=== PATIENT | male | born 1975 | race Caucasian/White ===

== ENCOUNTER → 2020-06-28 11:09 | Outpatient (CLI) | payer BC, SELFPAY ==
--- NOTE | 2020-06-28 11:25 | XR_ITS ---
PROCEDURE: XR CHEST PORTABLE CLINICAL HISTORY: COVID TESTING,PNEUMONIA COMPARISON: No exams were available for comparison FINDINGS: The cardiomediastinal silhouette and pulmonary vascularity are within normal limits. The lungs are clear without infiltrates, suspicious nodules, or pleural effusions. No acute bony abnormalities. IMPRESSION: No acute findings. Dictated by: Cooper Aldana MD 06/28/2020 12:06 Cooper Aldana MD in [place] 06/28/2020 12:06
== END ==
LOC: COVID.OUT 11:16
PROVIDERS: PCP Family Medicine; Visit Provider Nurse Practitioner Family
DX: Z20.822 Contact with and (suspected) exposure to COVID-19 (principal); J18.9 Pneumonia, unspecified organism
CPT/HCPCS: 71045; U0003

== ENCOUNTER → 2020-07-01 10:45 | Outpatient (CLI) | payer BC, SELFPAY ==
--- NOTE | 2020-07-01 10:50 | CT_ITS ---
PROCEDURE: CT ANGIO CHEST CLINCIAL INDICATION: WHEEZING Congestion Productive cough Symptoms x2-3 days COMPARISON: CR XR CHEST PORTABLE from 06/28/2020 TECHNIQUE: IV Contrast: 70ML Isovue 370 Axial images obtained with sagittal and coronal reformats. All CT scans at the facility use one or more dose reduction, viz: automated exposure control, ma/kV adjustment per patient size (including targeted exams where dose is matched to indication, i.e. head), or iterative reconstruction technique. FINDINGS: No evidence of pulmonary embolus, aortic aneurysm, or aortic dissection. No mediastinal or hilar or adenopathy. There are paraseptal emphysematous changes with small bullous formation in the right apex. There is evidence of old granulomatous disease. No suspicious nodule. No infiltrates or effusions. Mild bronchial thickening noted. Mild degenerative changes are present in the thoracic spine. IMPRESSION: No evidence of pulmonary embolus or aortic aneurysm or dissection. Mild paraseptal emphysematous changes with small bullous formation in the right apex Dictated by: Cooper Aldana MD 07/02/2020 09:46 Cooper Aldana MD in [place] 07/02/2020 09:46
== END ==
PROVIDERS: PCP Family Medicine; Visit Provider Nurse Practitioner Family
DX: R06.2 Wheezing (principal)
CPT/HCPCS: 71275; Q9967

== ENCOUNTER → 2020-12-24 09:54 | Outpatient (CLI) | payer BC, SELFPAY | PROVIDERS: PCP Family Medicine; Visit Provider Nurse Practitioner | DX: U07.1 COVID-19 (principal) | CPT/HCPCS: C9803; U0003; U0005 ==

== ENCOUNTER 2022-07-06 10:37 | Emergency (ER) | payer BC, SELFPAY ==
[2022-07-06 10:45] VITALS: BP 153/93; PULSE 58; RESP 22; TEMP 36.6; O2SAT 97; BMI 37.3
--- NOTE | 2022-07-06 11:08 | EXP.UTC ---
Discharge Plan Disposition Patient Disposition: Home, Self-Care Condition: Good Prescriptions Prescriptions: New cephalexin 500 mg capsule 500 mg PO QID 5 Days Qty: 20 0RF doxycycline monohydrate 100 mg capsule 100 mg PO BID 10 Days Qty: 20 0RF Referrals Follow up/Referrals: Tim Mancini MD [Primary Care Provider] - See instructions Activity Restrictions/Add. Instructions Additional Instructions/Restrictions: Watch area for worsening of symptoms redness, swelling etc follow up immediatly if any worsening *Start antibiotic(s) immediately and be sure to take as ordered for the FULL length of time although you may be feeling better or start to see improvement in the next 24-48 hours *Monitor closely. Outlined redness so that you can monitor easier. Follow up immediately for new or worsening symptoms including but not limited to redness, swelling, streaking from site fever or chills. *Warm compress 15 minutes 3-4 times day *Never squeeze or pop these on your own. Seek immediate medical attention next time this occurs *Monitor Temp. Tylenol every 4 hours as needed and ibuprofen every 6 hours as needed (as long as your primary care doctor has told you that it is ok to take both. For fever, aches, pain. ER if no less that 101 despite Tylenol and ibuprofen ?Follow up with your family doctor/primary care physician in the next 48-72 hours if no improvement Clinical Impressions Clinical Impression: Tick bite of right foot with infection Stand Alone Forms Stand Alone Forms: Work/School Release Instructions Patient Instructions: DI for Cellulitis -- Adult, Doxycycline, Cephalexin Discharge ED Provider: Milagro Urbina [facility] General Stated complaint: Possible tick bite RT foot toes, inflammation Mode of Arrival: Ambulatory Source of Information: Patient Limitations: No Limitations Time Seen by Provider: 07/06/22 11:08 Description of Symptoms (Recalled from Triage Doc. by RN): PATIENT C/O TICK BITE TO RIGHT MIDDLE TOE THAT POSSIBLY HAPPENED SUNDAY. HE STATES HE THINKS HE GOT THE WHOLE TICK OUT. REDNESS, WARMTH, AND SWELLING NOTED TO RIGHT FOOT/TOES HEENT Symptoms (Recalled from RN notes): No Resp Symptoms (Recalled from RN notes): No Skin Symptoms (Recalled from RN notes): Yes MS Symptoms (Recalled from RN notes): No Functional Status (Recalled from RN notes): WNL History of Present Illness Provider Complaint: Patient states that he was mowing grass and on Sunday he noticed a tick on his right middle toe and removed it and thinks he got the whole tick out States that now he is having swelling, redness and warmth to his toes and top of foot Related Data Previous Rx's Medication Instructions Recorded cephalexin 500 mg capsule 500 mg PO QID 5 days #20 caps 07/06/22 doxycycline monohydrate 100 mg 100 mg PO BID 10 days #20 caps 07/06/22 capsule Allergies Allergy/AdvReac Type Severity Reaction Status Date / Time No Known Allergies Allergy Verified 07/27/20 11:09 Worker's Comp Is this a Worker's Comp case?: No [facility] Disclaimer: The information contained in this section may have been updated after the patient was seen, as this information can be updated by other users. Social History Smoking Status: Current every day smoker alcohol intake: current current occupational status: employed Travel in the last 8 weeks: None ROS Obtained: Yes All systems reviewed & no additional complaints except as documented and Yes Systems reviewed as appropriate & no additional complaints except as documented Constitutional Constitutional: Reports system reviewed and no additional complaints, except as documented, Reports as per HPI, Denies body ache, Denies chills and Denies fever(s) ENT Ears, Nose, Mouth, and Throat: Reports system reviewed and no additional complaints, except as documented and Reports as per HPI Cardiovascular Cardiovascular: Reports system reviewed and no additional complaints, exc
[2022-07-06 11:30] VITALS: BP 153/93; PULSE 58; RESP 22; TEMP 36.6; O2SAT 97
== END 2022-07-06 11:36 | disposition home or self-care (01) ==
PROVIDERS: Emergency Provider Nurse Practitioner; PCP Family Medicine
DX: S90.861A Insect bite (nonvenomous), right foot, initial encounter (principal); L08.9 Local infection of the skin and subcutaneous tissue, unspecified; W57.XXXA Bitten or stung by nonvenomous insect and other nonvenomous arthropods, initial encounter; F17.210 Nicotine dependence, cigarettes, uncomplicated
CPT/HCPCS: 99204; 99212; G0463

== ENCOUNTER 2023-03-13 08:16 | Observation (INO) | payer BC, SELFPAY ==
[2023-03-13] VITALS (14 sets, daily range): BP systolic 92–147; BP diastolic 62–98; PULSE 52–84; RESP 18–20; TEMP 36.7–37.1; O2SAT 96–99; BMI 38.7; BMI 37.6
--- NOTE | 2023-03-13 08:48 | ED_ITS ---
Discharge Plan Disposition Patient Disposition: Still a Patient Condition: Fair Referrals Follow up/Referrals: Tim Mancini MD [Primary Care Provider] - See instructions Clinical Impressions Clinical Impression: Rt inguinal pain Discharge ED Provider: Rodrigo Miranda [facility] HPI General Stated complaint: place humped up on pelvic area Time Seen by Provider: 03/13/23 08:28 History of Present Illness Provider Complaint: He states that he has had worsening right sided groin swelling, pain and tenderness to touch since last night. He has a history of having swelling in that area for the past several years that he has always attributed to being a hernia. But he has never been diagnosed because it has never gave him many problems. He states that last night he began having nausea/vomiting, then he began to have worse swelling in that area along with pain and marked tenderness. Related Data Allergies Allergy/AdvReac Type Severity Reaction Status Date / Time No Known Allergies Allergy Verified 03/13/23 08:51 [facility] Disclaimer: The information contained in this section may have been updated after the patient was seen, as this information can be updated by other users. Social History Smoking Status: Current every day smoker alcohol intake: current current occupational status: employed Travel in the last 8 weeks: None ROS Obtained: Yes All systems reviewed & no additional complaints except as documented Constitutional Constitutional: Denies chills and Denies fever(s) Eyes Eyes: Denies eye discharge ENT Ears, Nose, Mouth, and Throat: Denies dizziness, Denies otalgia and Denies sore throat Cardiovascular Cardiovascular: Denies chest pain Respiratory Respiratory: Denies shortness of breath, Denies chest congestion, Denies cough, Denies stridor and Denies wheezing Gastrointestinal Gastrointestingal: Reports abdominal pain, nausea and vomiting; Denies melena Musculoskeletal Musculoskeletal: Reports system reviewed and no additional complaints, except as documented and Denies arthralgias Integumentary/Breasts Skin/Breast: Denies rash Neurologic Neurologic: Denies dizziness and Denies paresthesias Allergic/Immunologic Allergic/Immunologic: Denies wheezing Physical Exam General General appearance: alert and in no apparent distress Head Head exam: atraumatic, normocephalic and normal inspection Eye Eye exam: Present normal appearance, PERRL and EOMI ENT ENT exam: Present normal exam, normal oropharynx, mucous membranes moist, TM's normal bilaterally and normal external ear exam Neck Neck exam: Present normal inspection, full ROM and trachea midline; Absent meningismus or lymphadenopathy Chest Chest inspection: Present normal inspection and symmetric chest wall rise; Absent tenderness Respiratory Respiratory exam: Present normal lung sounds bilaterally; Absent respiratory distress Cardiovascular Cardiovascular exam: Present regular rate and normal rhythm; Absent JVD Abdominal Exam Abdominal exam: Present soft, tenderness, guarding, hyperactive bowel sounds and hernia; Absent distention Extremities Exam Extremities exam: Present normal inspection, full ROM and normal capillary refill; Absent calf tenderness Back Exam Back exam: Present normal inspection; Absent tenderness Neurological Exam Neurological exam: Present alert and oriented X3 Psychiatric Psychiatric exam: Present normal affect and normal mood Skin Skin exam: Present warm, dry, intact and normal color Lymphatic Lymphatic Findings: no adenopathy Medical Decision Making Medical Records Medical records reviewed: No I reviewed the patient's medical records. Arjun Inquiry Pt receiving controlled substance: No Lab Data Lab results reviewed: Yes I reviewed the patient's lab results.
[2023-03-13 08:55] LABS: UTC Influenza A Antigen Negative (Negative); UTC Influenza B Antigen Negative (Negative)
[2023-03-13 08:56] LABS: Apearance,Urine Clear (Clear); Bilirubin,Urine Negative (Negative); Blood, Urine Negative (Negative); Color,Urine Dark Yellow (Yellow); Glucose,Urine (UA) Negative (Negative); Ketones,Urine Negative (Negative); PH,Urine 5.5 (5.0-8.5); Protein,Urine Negative (Negative); UTC Leukocyte Esterase,Urine Negative (Negative); UTC Nitrate,Urine Negative (Negative); Urobilinogen,Urine 0.2 EU/dl (0.2)
--- NOTE | 2023-03-13 09:28 | CT_ITS ---
FINAL REPORT CLINICAL HISTORY: inguinal hernia, concern for obstruction COMPARISON: None FINDINGS: CT OF THE ABDOMEN AND PELVIS WITH CONTRAST Axial CT images of the abdomen and pelvis were obtained after the administration of IV contrast. Coronal and sagittal reformatted images were also obtained and reviewed. This study was performed with techniques to keep radiation doses as low as reasonably achievable (ALARA). Individualized dose reduction techniques using automated exposure control or adjustment of mA and/or kV according to the patient's size were employed. Abdomen: There is mild scarring present in the lung bases.. There is a probable pericardial cyst adjacent to the right atrium that measures 34 mm in diameter. The liver has an unremarkable appearance, without evidence of mass or biliary ductal dilatation. The spleen is unremarkable. No adrenal mass is present. The pancreas has an unremarkable appearance. The left kidney is severely atrophic. The right kidney is normal in appearance. There is a 5 mm stone present in the lower pole of the left kidney. The aorta is normal in caliber, however there is abnormal soft tissue in the retroperitoneum surrounding the aorta suggestive of retroperitoneal fibrosis.. There is no free fluid or adenopathy. No mass or abnormal fluid collection is seen. Pelvis: The appendix is normal in appearance. The urinary bladder is unremarkable. No inflammatory process is seen. There is no evidence of mass or adenopathy. There is no evidence of bowel obstruction. Sigmoid diverticulosis is present without evidence of acute inflammatory process. Bilateral inguinal hernias are present, larger on the right than the left, both containing fat. IMPRESSION: Severely atrophic left kidney, with a 5 mm stone in the lower pole. There is abnormal soft tissue present in the retroperitoneum surrounding the aorta, consistent with mild retroperitoneal fibrosis. No evidence of bowel obstruction. Bilateral inguinal hernias are present, larger on the right than the left, that both contain fat. Pericardial cyst adjacent to the right atrium, 34 mm in size. Reviewed, Interpreted and Dictated by Ernie Helm III, MD Transcribed by Ana Maria Ramírez Authenticated and [facility]
--- NOTE | 2023-03-13 09:44 | PC.NURSE ---
dr akers at bedside
[2023-03-13] MEDS: LACTATED RINGERS 1000ML 1,000 ML 999 ML IV (09:48)
[2023-03-13 09:49] LABS: Basophils # 0.1 K/mm3 (0-0.2); Basophils % 0.8 % (0.1-2.0); Eosinophils # 0.4 K/mm3 (0.0-0.4); Eosinophils % 3.6 % (0.1-12.0); Hematocrit 48.7 % (42.0-52.0); Hemoglobin 16.6 g/dL (14.1-18.0); Lymphocytes # 1.8 K/mm3 (0.7-4.5); Lymphocytes % 18.9 % (10-50); Mean Corpuscular HGB Conc 34.1 g/dL (31.8-35.4); Mean Corpuscular Hemoglobin 30.9 pg (27.0-31.2); Mean Corpuscular Volume 90.5 fl (80-94); Mean Platelet Volume 7.8 fl (7.4-10.4); Monocytes # 0.5 K/mm3 (0.1-1.0); Monocytes % 4.7 % (1.7-9.3); Neutrophils # 7.1 K/mm3 (1.8-7.8); Neutrophils % 72.1 % (37.0-80.0); Platelet Count 266 K/mm3 (142-424); Red Blood Count 5.38 M/mm3 (4.60-6.20); Red Cell Distribution Width 13.7 % (11.5-17.5); White Blood Count 9.8 K/mm3 (4.8-10.8)
[2023-03-13] MEDS: ONDANSETRON 4MG/2ML VIAL 4 MG IV (09:50)
--- NOTE | 2023-03-13 09:59 | ED_ITS ---
Discharge Plan Disposition Patient Disposition: Admitted Condition: Fair Referrals Follow up/Referrals: Tim Mancini MD [Primary Care Provider] - See instructions Clinical Impressions Clinical Impression: Rt inguinal pain, Acute pancreatitis Discharge ED Provider: Rodrigo Miranda General Adult HPI General Chief complaint: PAIN Stated complaint: place humped up on pelvic area Time Seen by Provider: 03/13/23 08:28 Mode of Arrival: Wheelchair Source of Information: Patient Limitations: No Limitations Description of Symptoms (Recalled from ER Triage Doc. by RN): Patient reports vomiting last night that caused a bump to come up in his right groin area. States it is painful. History of Present Illness HPI narrative: 48-year-old male with history of right inguinal hernia presenting with abdominal pain and vomiting. Patient states that last night, 03/12/2023, he began having abdominal pain primarily on his right side and right lower quadrant. Associated with vomiting shortly thereafter. Vomit was yellow initially, then turned into a dark orange. Denies any dark red, dark green, or brown. Last bowel movement was yesterday, 03/12 and he states was running, not normal for him. He has not been passing gas over the last 24 hours or so. No fevers or chills. No abdominal pain does not radiate, he does not believe groin swelling has gotten significantly worse from baseline. Related Data Allergies Allergy/AdvReac Type Severity Reaction Status Date / Time No Known Allergies Allergy Verified 03/13/23 08:51 [facility] Disclaimer: The information contained in this section may have been updated after the patient was seen, as this information can be updated by other users. Social History Smoking Status: Never smoker alcohol intake: current current occupational status: employed Travel in the last 8 weeks: None ROS Obtained: Yes All systems reviewed & no additional complaints except as documented Physical Exam General General appearance: alert and in distress (2/2 pain) Head Head exam: atraumatic and normocephalic Eye Eye exam: Present normal appearance, PERRL and EOMI ENT ENT exam: Present mucous membranes moist Neck Neck exam: Present normal inspection, full ROM and trachea midline Respiratory Respiratory exam: Absent respiratory distress, wheezes, stridor, accessory muscle use or prolonged expiratory phase Cardiovascular Cardiovascular exam: Present normal rhythm Abdominal Exam Abdominal exam: Present soft, tenderness and guarding; Absent distention, rebound or rigidity Abdominal tenderness: Present RUQ, RLQ and moderate exam: Present other (Right inguinal hernia which is significantly tender. No induration around the area and no evidence of overlying skin changes) Extremities Exam Extremities exam: Absent edema Neurological Exam Neurological exam: Present alert, oriented X3, CN II-XII intact and normal gait; Absent motor sensory deficit Skin Skin exam: Present warm and dry; Absent diaphoresis or erythema Medical Decision Making Medical Records Medical records reviewed: Yes I reviewed the patient's medical records. Arjun Inquiry Pt receiving controlled substance: No Arjun was queried for this patient: No Vital Signs: 03/13/23 08:25 03/13/23 09:44 03/13/23 11:01 Temperature 98.7 F 98.7 F Temperature Source Oral Oral Pulse Rate 65 Pulse Rate [Right Radial] 84 71 Respiratory Rate 18 18 Blood Pressure 132/92 H Blood Pressure [Right Arm] 144/97 H Blood Pressure Mean Blood Pressure Mean [Right Arm] 112 Blood Pressure Source [Right Arm] Automatic Cuff Blood Pressure Position [Right Arm] Sitting 02 Sat by Pulse Oximetry 98 96 96 Oxygen Delivery Method Room Air Room Air Room Air 03/13/23 11:21 03/13/23 11:41 03/13/23 12:01 Temperature Temperature Source Pulse Rate 59 L 57 L 67 Pulse Rate [Right Radial] Respiratory Rate 20 Blood Pressure 127/82 130/80 92/62 L Blood Pressure [Right Arm] Blood Pressure Mean 72 Blood Pressure Mean [Right Arm] Blood Pressure Source [Right Arm] Blood Pressure Position [Right Arm] 02 Sat by Pulse Oximetry 98 96 97 Oxygen Delivery Method Room Air Room Air 03/13/23 12:21 Temperature Temperature Source Pulse Rate 59 L Pulse Rate [Right Radial] Respiratory Rate Blood Pressure 116/98 H Blood Pressure [Right Arm] Blood Pressure Mean Blood Pressure Mean [Right Arm] Blood Pressure Source [Right Arm] Blood Pressure Position [Right Arm] 02 Sat by Pulse Oximetry 97 Oxygen Delivery Method Room Air Lab Data Lab Results 03/13/23 08:26: Urine Color Dark yellow, Urine Appearance Clear, Urine pH 5.5, Ur Specific [place] 1.030, Urine Protein Negative, Urine Glucose (UA) Negative, Urine Ketones Negative, Urine Blood Negative, Urine Nitrate Negative, Urine Bilirubin Negative, Urine Urobilinogen 0.2, Ur Leukocyte Esterase Negative, Influenza Type A Ag Negative, Influenza Type B Ag Negative 03/13/23 09:39: WBC 9.8, RBC 5.38, Hgb 16.6, Hct 48.7, MCV 90.5, MCH 30.9, MCHC 34.1, RDW 13.7, Plt Count 266, MPV 7.8, Neut % (Auto) 72.1, Lymph % (Auto) 18.9, Giles % (Auto) 4.7, Eos % (Auto) 3.6, Baso % (Auto) 0.8, Neut # (Auto) 7.1, Lymph # (Auto) 1.8, Giles # (Auto) 0.5, Eos # (Auto) 0.4, Baso # (Auto) 0.1, Sodium 141, Potassium 4.4, Chloride 111 H, Carbon Dioxide 23, Anion Gap 11.4, BUN 18, Creatinine 0.90, Estimated Creat Clear 177, Estimated GFR 91, Est GFR ( Amer) 110, Glucose 77, Calcium 9.5, Total Bilirubin 1.0, AST 32, ALT 23, Alkaline Phosphatase 62, Total Protein 7.1, Albumin 4.3, Globulin 2.8, Albumin/Globulin Ratio 1.5, Lipase 983 H 03/13/23 10:59: Lactate 0.7 03/13/23 09:39 03/13/23 09:39 Orders (Tests/Meds): ED MEDICATIONS Generic Name Dose Route Start Last Admin Trade Name Freq PRN Reason Stop Dose Admin Sodium Chloride 10 ml 03/13/23 10:48 03/13/23 10:49 Sodium Chloride 0.9% 10ml Syr (Rad Only) IV 04/12/23 10:47 10 ml NEEDED PRN Administration Maintain IV Site Discontinued Medications Generic Name Dose Route Start Last Admin Trade Name Freq PRN Reason Stop Dose Admin Hydromorphone HCl 0.5 mg 03/13/23 10:03 03/13/23 10:18 Hydromorphone 2mg/Ml Syringe IV 03/13/23 10:04 0.5 mg ONCE ONE Administration Lactated Ringer's 1,000 mls @ 999 mls/hr 03/13/23 09:29 03/13/23 09:48 Lactated Ringer's 1000 Ml Bag IV 03/13/23 10:29 999 mls/hr .Q1H1M ONE Administration Iopamidol 75 ml 03/13/23 10:48 03/13/23 10:49 Iopamidol-370 (76%);100ml Bottle IV 03/13/23 10:49 75 ml ONCE ONE Administration Ketorolac Tromethamine 15 mg 03/13/23 10:03 03/13/23 10:18 Ketorolac 30mg/Ml Vial IV 03/13/23 10:04 15 mg ONCE ONE Administration Ondansetron HCl 4 mg 03/13/23 09:29 03/13/23 09:50 Ondansetron 4mg/2ml Vial IV 03/13/23 09:30 4 mg ONCE ONE Administration ORDERS Category Date Time Status CT abdomen pelvis w con Stat Cat Scan 03/13/23 09:28 Completed CBC w/Auto Diff [Complete Blood Count Auto Diff] Stat Lab 03/13/23 09:39 Completed CMP [Comprehensive Metabolic Panel] Stat Lab 03/13/23 09:39 Completed Lactic Acid Stat Lab 03/13/23 10:59 Completed Lipase Stat Lab 03/13/23 09:39 Completed Triglycerides Stat Lab 03/13/23 12:16 Ordered Urine Culture Stat Micro 03/13/23 08:25 Received Medical Decision Narrative: 48-year-old male with history of right inguinal hernia presenting with abdominal pain and vomiting. Patient states that last night, 03/12/2023, he began having abdominal pain primarily on his right side and right lower quadrant. Associated with vomiting shortly thereafter. Vomit was yellow initially, then turned into a dark orange. Denies any dark red, dark green, or brown. Last bowel movement was yesterday, 03/12 and he states was running, not normal for him. He has not been passing gas over the last 24 hours or so. No fevers or chills. No abdominal pain does not radiate, he does not believe groin swelling has gotten significantly worse from baseline. History was obtained via conversation with patient. On arrival, patient hemodynamically stable, alert, oriented x4, appropriate, GCS 15, moving all extremities spontaneously, pupils equal and reactive to light. Full physical exam performed and significant for significant abdominal tenderness primarily on the right side. Guarding without rebound or rigidity. Right inguinal hernia without extension into scrotum. No overlying skin changes, no induration, but nonreducible. Seems to be in significant pain. No scrotal abnormalities or testicular abnormality Differential includes incarcerated hernia, strangulated hernia, testicular torsion, gastroenteritis, appendicitis, cholecystitis, among others. Patient was given Toradol, Dilaudid, fluid bolus, Zofran for symptomatic management and correction of underlying abnormalities. Workup independently interpreted and significant for nonactionable CBC or chemistry. Kidney function normal. Lactate negative. Lipase 983. Urinalysis negative. CT abdomen pelvis with bilateral inguinal hernias not containing loops of bowel. No evidence of obstruction. See radiology read for full review of final results. On reevaluation, patient still in pain, given Toradol and Dilaudid. Dr. Calix contacted as the admitting team for Dr. Mancini, agreeable to admission. Given patient presentation, workup, history, this most likely represents acute pancreatitis. Triglycerides were ordered. Because patient high risk for clinical decompensation and unable to tolerate meaningful p.o. intake, deemed appropriate for inpatient admission. Results were relayed to patient who voiced understanding and patient was agreeable to inpatient admission and management. Patient was admitted to the hospital for further definitive management. Critical Care Critical Care Time Critical Care Time: No
[2023-03-13 10:11] LABS: Alanine Aminotransferase 23 U/L (12-78); Albumin Level 4.3 g/dl (3.5-5.0); Albumin/Globulin Ratio 1.5 (1.1-1.8); Alkaline Phosphatase 62 U/L (38-126); Anion Gap 11.4 mEq/L (5-15); Aspartate Amino Transferase 32 U/L (17-59); Blood Urea Nitrogen 18 mg/dl (9-20); Calcium 9.5 mg/dl (8.4-10.2); Carbon Dioxide 23 mmol/L (22.0-30.0); Chloride 111 mmol/L (98-107); Creatinine Clearance Estimated 177 mL/min (50-200); Estimated Glomerular Filt Rate 91 ml/min (>60); GFR (African American) 110 ML/MIN (>60); Globulin 2.8 g/dL (1.3-3.2); Glucose 77 mg/dl (74-100); Potassium 4.4 mmoL/L (3.5-5.1); Sodium 141 mmol/L (136-145); Total Protein,Serum 7.1 g/dl (6.3-8.2)
[2023-03-13 10:15] LABS: Lipase 983 U/L (23-300)
[2023-03-13] MEDS: KETOROLAC 30MG/ML VIAL 15 MG IV (10:18)
[2023-03-13] MEDS: HYDROMORPHONE 2MG/ML SYRINGE 0.5 MG IV (10:18)
--- NOTE | 2023-03-13 10:18 | PC.NURSE ---
PT MEDICATED PER EMAR, LIGHTS DIMMED AND CALL LIGHT WITHIN REACH. PT WITHOUT NEEDS AT THIS TIME
[2023-03-13] MEDS: SODIUM CHLORIDE 0.9% 10ML SYR (RAD ONLY) 10 ML IV (10:49)
[2023-03-13] MEDS: IOPAMIDOL-370 (76%);100ML BOTTLE 75 ML IV (10:49)
--- NOTE | 2023-03-13 11:00 | PC.NURSE ---
pt was given a urinal and placed bed side table near him so he could rest his arm and place his phone no other needs at this time,call light at bs
[2023-03-13 11:23] LABS: Lactic Acid 0.7 mmol/L (0.7-2.1)
--- NOTE | 2023-03-13 12:10 | PC.NURSE ---
MULTIPLE ATTEMPTS TO REACH [facility] OFFICE, NO ANSWER. ATTEMPTING TO REACH ON -CALL MD FOR DR. MARVIN.
--- NOTE | 2023-03-13 12:14 | PC.NURSE ---
DR JAIME SPEAKING WITH DR TAMAYO
--- NOTE | 2023-03-13 12:16 | PC.NURSE ---
pt was given to
--- NOTE | 2023-03-13 12:30 | PC.NURSE ---
DR JAIME SPEAKING WITH DR MITCHELL FOR ADMISSION
--- NOTE | 2023-03-13 12:35 | PC.NURSE ---
CARE MANAGEMENT NOTIFIED OF ADMISSION
[2023-03-13 12:44] LABS: Triglycerides 90 mg/dl (30-150)
--- NOTE | 2023-03-13 12:46 | PC.NURSE ---
rounded on pt asked how long it be before he was moved to med surg let pt know we were waiting on rooms so pt stated he was going to take a nap i pulled curtain and closed glass door pt has call light at bs
--- NOTE | 2023-03-13 13:53 | EXP.HP ---
History of Present Illness *Admission Date: 03/13/23 *Reason for visit:: Nausea, vomiting, diarrhea, abdominal pain *History of present illness: Mr. Benito is a 48-year-old male patient who is usually healthy and takes no medications on a regular basis who presented to [facility] emergency room after experiencing nausea and vomiting and diarrhea yesterday. He states it was sudden onset and he had been doing well and actually took a youth group to [place] on Sunday evening. He was able to retain dry cereal last p.m. This a.m. he again vomited. He was concerned about a right inguinal hernia which seems to be larger and was painful. He also began to experience some right upper Quadrant/general abdominal discomfort. He did vomit again today. He denies hematochezia, melena, and hematemesis. He is voiding without difficulty. He denies fever and upper respiratory problems. He states his family members currently have flu and he was concerned about this as well. With evaluation in the emergency room temperature was 98.7. Blood pressure initially was elevated and is now back to normal. He did receive a dose of Dilaudid 1 and Ketorolac IV which has helped his pain. He also received a liter of IV fluids and Zofran IV. Laboratory data was pretty much negative except for a lipase of 983. CT of the abdomen abdomen did show bilateral inguinal hernias with the right being larger than the left. Neither contained loops of bowel. No evidence of obstruction. Flu test was negative. At the time of this visit patient was awakened for exam. He states he did not hurt and was not nauseated. He was wondering when he could eat. [facility] Disclaimer: The information contained in this section may have been updated after the patient was seen, as this information can be updated by other users. Medical History (Updated 03/13/23 @ 15:02 by Bianca Banuelos RN) Gout History of left heart catheterization Family History (Updated 03/13/23 @ 13:59 by Altagracia Doe APRN) Diabetes Heart attack Social History (Updated 03/13/23 @ 15:03 by Bianca Banuelos RN) Smoking Status: Current every day smoker alcohol intake: never current occupational status: employed Travel in the last 8 weeks: None Review of Systems Constitutional Constitutional: Denies fever(s), Denies frequent falls and Reports headache(s) Eyes Eyes: Denies change in vision ENT Ears, Nose, Mouth, and Throat: Denies dizziness, Denies otalgia, Reports headache(s), Denies post nasal drip, Denies sore throat and Denies vertigo *Cardiovascular Cardiovascular: Denies chest pain, Denies dyspnea, Denies leg edema and Denies palpitations *Respiratory Respiratory: Denies chest congestion, Reports cough (Infrequent) and Denies dyspnea *Gastrointestinal Gastrointestinal: Reports change in stool character, Denies coffee ground emesis, Denies constipation, Reports diarrhea, Denies dyspepsia, Denies hematemesis, Reports loose stools, Denies melena, Reports nausea and Reports vomiting *Genitourinary Genitourinary: Denies dysuria *Musculoskeletal Musculoskeletal: Denies abnormal gait and Denies arthralgias *Neurologic Neurologic: Denies abnormal gait, Denies dizziness, Denies frequent falls, Reports headache(s), Denies paresthesias and Denies vertigo Endocrine Endocrine: Denies palpitations Meds Home Medications and Allergies Home Medications Medication Instructions Recorded Confirmed Type No Known Home Medications 03/13/23 03/13/23 History New Prescriptions to Start Prescriptions: Allergies Allergy/AdvReac Type Severity Reaction Status Date / Time No Known Allergies Allergy Verified 03/13/23 08:51 Exam Data for Last 24 hours Vital signs and Labs for Last 24 Hours: Temp Pulse Resp BP Pulse Ox O2 Del Method 98.7 F 59 L 20 116/98 H 97 Room Air 03/13/23 09:44 03/13/23 12:21 03/13/23 12:01 03/13/23 12:21 03/13/23 12:21 03/13/23 12:21 Laboratory Results - last 24 hr 03/13/23 08:26: Urine Color Dark yellow, Urine Appearance Clear, Urine pH 5.5, Ur Specific [place] 1.030, Urine Protein Negative, Urine Glucose (UA) Negative, Urine Ketones Negative, Urine Blood Negative, Urine Nitrate Negative, Urine Bilirubin Negative, Urine Urobilinogen 0.2, Ur Leukocyte Esterase Negative, Influenza Type A Ag Negative, Influenza Type B Ag Negative 03/13/23 09:39: WBC 9.8, RBC 5.38, Hgb 16.6, Hct 48.7, MCV 90.5, MCH 30.9, MCHC 34.1, RDW 13.7, Plt Count 266, MPV 7.8, Neut % (Auto) 72.1, Lymph % (Auto) 18.9, [place] % (Auto) 4.7, Eos % (Auto) 3.6, Baso % (Auto) 0.8, Neut # (Auto) 7.1, Lymph # (Auto) 1.8, [place] # (Auto) 0.5, Eos # (Auto) 0.4, Baso # (Auto) 0.1, Sodium 141, Potassium 4.4, Chloride 111 H, Carbon Dioxide 23, Anion Gap 11.4, BUN 18, Creatinine 0.90, Estimated Creat Clear 177, Estimated GFR 91, Est GFR ( Amer) 110, Glucose 77, Calcium 9.5, Total Bilirubin 1.0, AST 32, ALT 23, Alkaline Phosphatase 62, Total Protein 7.1, Albumin 4.3, Globulin 2.8, Albumin/Globulin Ratio 1.5, Lipase 983 H 03/13/23 10:59: Lactate 0.7 03/13/23 : Triglycerides 90 I & O for Last 24 hours: Intake & Output 03/11/23 03/12/23 03/13/23 03/14/23 11:59 11:59 11:59 11:59 Output Total 700 / 700 Balance -700 / -700 Weight 269 lb 8 oz Constitutional Constitutional: no acute distress Comments: Awakened for physical assessment. Patient was very helpful. *Routine HEENT Exam Head: Present normocephalic and atraumatic Eye: Present PERRL; Absent conjunctival icterus, scleral injection or conjunctivae pink ENT: Present mucous membranes moist and oropharynx clear *Routine Neck Exam Neck: Present supple; Absent carotid bruit, lymphadenopathy or thyromegaly *Routine Respiratory Exam Respiratory: Present CTA bilaterally (Anteriorly and posteriorly) *Routine Cardiovascular Exam Cardiovascular: Present RRR *Routine Abdominal Exam Abdominal: Present soft, normoactive bowel sounds, tenderness (Diffusely) and distended *Routine Rectal Exam Rectal:: deferred *Routine Genitalia Exam Genitalia:: deferred *Routine Extremities Exam Extremities: Present full ROM and pulses intact; Absent edema or calf tenderness *Routine Neurological Exam Neurological: Present alert and oriented X3 Assessment and Plan *Assessment and plan (1) Acute pancreatitis: Status: Acute Category: Medical Code(s): K85.90 - Acute pancreatitis without necrosis or infection, unspecified (2) Nausea vomiting and diarrhea: Status: Acute Category: Medical Code(s): R11.2 - Nausea with vomiting, unspecified; R19.7 - Diarrhea, unspecified Plan Pain and nausea management. GI rest. IV fluids Dr. Calix entry - Saw patient, agree with above note.
--- NOTE | 2023-03-13 14:43 | PC.NURSE ---
REPORT RECEIVED FROM Prabhu SOLIS RN
[2023-03-13] MEDS: LACTATED RINGERS 1000ML 1,000 ML 100 ML IV (14:51)
[2023-03-14] MEDS: LACTATED RINGERS 1000ML 1,000 ML 100 ML IV (00:43)
[2023-03-14] MEDS: ACETAMINOPHEN 500MG TAB 1000 MG PO (00:46)
[2023-03-14 04:00] VITALS: BP 139/92; PULSE 61; RESP 18; TEMP 36.5; O2SAT 97; BMI 38.1
[2023-03-14 06:40] LABS: Basophils # 0.1 K/mm3 (0-0.2); Basophils % 0.5 % (0.1-2.0); Eosinophils # 0.4 K/mm3 (0.0-0.4); Eosinophils % 3.7 % (0.1-12.0); Hematocrit 45.7 % (42.0-52.0); Hemoglobin 15.3 g/dL (14.1-18.0); Lymphocytes # 2.5 K/mm3 (0.7-4.5); Lymphocytes % 24.6 % (10-50); Mean Corpuscular HGB Conc 33.5 g/dL (31.8-35.4); Mean Corpuscular Hemoglobin 30.7 pg (27.0-31.2); Mean Corpuscular Volume 91.8 fl (80-94); Mean Platelet Volume 8.1 fl (7.4-10.4); Monocytes # 0.6 K/mm3 (0.1-1.0); Monocytes % 5.4 % (1.7-9.3); Neutrophils # 6.7 K/mm3 (1.8-7.8); Neutrophils % 65.7 % (37.0-80.0); Platelet Count 218 K/mm3 (142-424); Red Blood Count 4.98 M/mm3 (4.60-6.20); Red Cell Distribution Width 13.8 % (11.5-17.5); White Blood Count 10.3 K/mm3 (4.8-10.8)
[2023-03-14 06:43] LABS: Chloride 111 mmol/L (98-107); Potassium 4.6 mmoL/L (3.5-5.1); Sodium 139 mmol/L (136-145)
[2023-03-14 06:45] LABS: Alanine Aminotransferase 22 U/L (12-78); Amylase 83 U/L (30-110); Aspartate Amino Transferase 25 U/L (17-59); Blood Urea Nitrogen 12 mg/dl (9-20); Creatinine Clearance Estimated 158 mL/min (50-200); Estimated Glomerular Filt Rate 80 ml/min (>60); GFR (African American) 97 ML/MIN (>60)
[2023-03-14 06:46] LABS: Albumin Level 3.5 g/dl (3.5-5.0); Albumin/Globulin Ratio 1.4 (1.1-1.8); Alkaline Phosphatase 65 U/L (38-126); Anion Gap 6.6 mEq/L (5-15); Bilirubin,Total 0.8 mg/dl (0.2-1.3); Calcium 8.8 mg/dl (8.4-10.2); Carbon Dioxide 26 mmol/L (22.0-30.0); Globulin 2.5 g/dL (1.3-3.2); Glucose 91 mg/dl (74-100); Lipase 112 U/L (23-300)
[2023-03-14 07:57] VITALS: BP 146/82; PULSE 63; RESP 18; TEMP 36.8; O2SAT 99
--- NOTE | 2023-03-14 08:35 | EXP.ACUTE.PN ---
Subjective *Date: 03/14/23 *Time: 09:10 Interval history: Patient states he is having less pain in his upper abdomen but his right groin area hurts this morning. He was unable to sleep on the right side due to the pain. He was able to eat some oatmeal and Jell-O this morning. Medical Exam Vital signs and Labs for Last 24 Hours: Vital Signs Temp Pulse Pulse Resp BP BP Pulse Ox 03/14/23 07:57 98.3 F 63 18 146/82 H 99 03/14/23 07:00 03/14/23 05:00 03/14/23 04:00 97.7 F 61 18 139/92 H 97 03/14/23 03:00 03/14/23 01:00 03/14/23 01:01 03/13/23 23:00 03/13/23 21:00 03/13/23 19:54 98.2 F 64 18 145/95 H 99 03/13/23 18:48 03/13/23 17:00 03/13/23 15:36 03/13/23 15:03 98.0 F 56 L 18 132/92 H 96 03/13/23 15:00 03/13/23 14:52 98.0 F 58 L 20 138/72 03/13/23 14:21 58 L 140/92 H 97 03/13/23 14:01 66 147/90 H 96 03/13/23 13:41 59 L 20 125/95 H 97 03/13/23 13:00 52 L 20 137/92 H 96 03/13/23 12:21 59 L 116/98 H 97 03/13/23 12:01 67 20 92/62 L 97 03/13/23 11:41 57 L 130/80 96 03/13/23 11:21 59 L 127/82 98 03/13/23 11:01 65 132/92 H 96 03/13/23 09:44 98.7 F 71 18 144/97 H 96 O2 Del Method 03/14/23 07:57 Room Air 03/14/23 07:00 Room Air 03/14/23 05:00 Room Air 03/14/23 04:00 Room Air 03/14/23 03:00 Room Air 03/14/23 01:00 Room Air 03/14/23 01:01 Room Air 03/13/23 23:00 Room Air 03/13/23 21:00 Room Air 03/13/23 19:54 Room Air 03/13/23 18:48 Room Air 03/13/23 17:00 Room Air 03/13/23 15:36 Room Air 03/13/23 15:03 Room Air 03/13/23 15:00 Room Air 03/13/23 14:52 Room Air 03/13/23 14:21 Room Air 03/13/23 14:01 Room Air 03/13/23 13:41 03/13/23 13:00 03/13/23 12:21 Room Air 03/13/23 12:01 03/13/23 11:41 Room Air 03/13/23 11:21 Room Air 03/13/23 11:01 Room Air 03/13/23 09:44 Room Air Intake and Output 03/13/23 03/14/23 03/14/23 19:59 03:59 11:59 Intake Total 1060 / 2902 1842 / 2902 Output Total 700 / 700 0 / 700 0 / 700 Balance 360 / 2202 0 / 2202 1842 / 2202 Intake: Intake, Oral Amount 960 / 1580 620 / 1580 Intake, Total IV Amount 100 / 1322 1222 / 1322 Lactated Ringers 1000ML 1,000 100 / 1322 1222 / 1322 ml @ 100 mls/hr IV .Q10H [facility] Rx #:[id number] Output: Output, Urine Amount 700 / 700 0 / 700 0 / 700 Other: Number of Voids 1 Number of Unmeasured Voids 1 1 1 Weight 262 lb 3 oz 266 lb 6.4 oz Patient Weight 03/14/23 11:59 Weight 266 lb 6.4 oz Laboratory Results - last 24 hr 03/13/23 08:26: Urine Color Dark yellow, Urine Appearance Clear, Urine pH 5.5, Ur Specific [place] 1.030, Urine Protein Negative, Urine Glucose (UA) Negative, Urine Ketones Negative, Urine Blood Negative, Urine Nitrate Negative, Urine Bilirubin Negative, Urine Urobilinogen 0.2, Ur Leukocyte Esterase Negative, Influenza Type A Ag Negative, Influenza Type B Ag Negative 03/13/23 09:39: WBC 9.8, RBC 5.38, Hgb 16.6, Hct 48.7, MCV 90.5, MCH 30.9, MCHC 34.1, RDW 13.7, Plt Count 266, MPV 7.8, Neut % (Auto) 72.1, Lymph % (Auto) 18.9, [place] % (Auto) 4.7, Eos % (Auto) 3.6, Baso % (Auto) 0.8, Neut # (Auto) 7.1, Lymph # (Auto) 1.8, [place] # (Auto) 0.5, Eos # (Auto) 0.4, Baso # (Auto) 0.1, Sodium 141, Potassium 4.4, Chloride 111 H, Carbon Dioxide 23, Anion Gap 11.4, BUN 18, Creatinine 0.90, Estimated Creat Clear 177, Estimated GFR 91, Est GFR ( Amer) 110, Glucose 77, Calcium 9.5, Total Bilirubin 1.0, AST 32, ALT 23, Alkaline Phosphatase 62, Total Protein 7.1, Albumin 4.3, Globulin 2.8, Albumin/Globulin Ratio 1.5, Lipase 983 H 03/13/23 10:59: Lactate 0.7 03/13/23 : Triglycerides 90 03/14/23 06:02: WBC 10.3, RBC 4.98, Hgb 15.3, Hct 45.7, MCV 91.8, MCH 30.7, MCHC 33.5, RDW 13.8, Plt Count 218, MPV 8.1, Neut % (Auto) 65.7, Lymph % (Auto) 24.6, [place] % (Auto) 5.4, Eos % (Auto) 3.7, Baso % (Auto) 0.5, Neut # (Auto) 6.7, Lymph # (Auto) 2.5, [place] # (Auto) 0.6, Eos # (Auto) 0.4, Baso # (Auto) 0.1, Sodium 139, Potassium 4.6, Chloride 111 H, Carbon Dioxide 26, Anion Gap 6.6, BUN 12 D, Creatinine 1.00, Estimated Creat Clear 158, Estimated GFR 80, Est GFR ( Amer) 97, Glucose 91, Calcium 8.8, Total Bilirubin 0.8, AST 25, ALT 22, Alkaline Phosphatase 65, Total Protein 6.0 L, Albumin 3.5 D, Globulin 2.5, Albumin/Globulin Ratio 1.4, Amylase 83, Lipase 112 I & O for Labs for Last 24 Hours: Intake & Output 03/11/23 03/12/23 03/13/23 03/14/23 11:59 11:59 11:59 11:59 Intake Total 2902 / 2902 Output Total 700 / 700 Balance 2202 / 2202 Weight 269 lb 8 oz 266 lb 6.4 oz Constitutional: Present no acute distress Respiratory: Present CTA bilaterally Cardiac: Present Reg Rate and Rhythm GI: Present soft, tenderness (epigastric area and right groin - right groin is very tender this am) and normal bowel sounds; Absent distention Extremities: Absent edema, clubbing or cyanosis Skin: Present intact Neuro: Present alert and awake Assessment and Plan *Assessment and plan (1) Acute pancreatitis: Status: Acute Category: Medical Code(s): K85.90 - Acute pancreatitis without necrosis or infection, unspecified (2) Nausea vomiting and diarrhea: Status: Acute Category: Medical Code(s): R11.2 - Nausea with vomiting, unspecified; R19.7 - Diarrhea, unspecified (3) Inguinal hernia: Status: Acute Category: Medical Code(s): K40.90 - Unilateral inguinal hernia, without obstruction or gangrene, not specified as recurrent (4) Rt inguinal pain: Status: Acute Category: Medical Code(s): R10.31 - Right lower quadrant pain Plan Epigastric pain has improved and lipase has normalized. Patient has tolerated some food. Will consult surgery due to inguinal hernia pain on the right. Dr. Calix entry - Saw patient, agree with above note.
--- NOTE | 2023-03-14 11:14 | EXP.SURG.CON ---
History of Present Illness *Admission Date: 03/13/23 *Reason for visit:: Right inguinal hernia *History of present illness: This is a 48-year-old gentleman seen in consultation from the primary service for evaluation regarding symptomatic right inguinal hernia. He was admitted for evaluation of pancreatitis after presenting to the emergency department with upper abdominal pain. He states that he has gotten much better over the past few hours ; however, right groin pain has become more noticeable today. He reports a history of intermittent pain in the right groin and states, I know I have a hernia . His CT scan at time of admission confirmed bilateral (right greater than left) inguinal fat-containing hernias. Forwarded from admission H&P: Mr. Benito is a 48-year-old male patient who is usually healthy and takes no medications on a regular basis who presented to [facility] emergency room after experiencing nausea and vomiting and diarrhea yesterday. He states it was sudden onset and he had been doing well and actually took a youth group to [place] on Sunday evening. He was able to retain dry cereal last p.m. This a.m. he again vomited. He was concerned about a right inguinal hernia which seems to be larger and was painful. He also began to experience some right upper Quadrant/general abdominal discomfort. He did vomit again today. He denies hematochezia, melena, and hematemesis. He is voiding without difficulty. He denies fever and upper respiratory problems. He states his family members currently have flu and he was concerned about this as well. With evaluation in the emergency room temperature was 98.7. Blood pressure initially was elevated and is now back to normal. He did receive a dose of Dilaudid 1 and Ketorolac IV which has helped his pain. He also received a liter of IV fluids and Zofran IV. Laboratory data was pretty much negative except for a lipase of 983. CT of the abdomen abdomen did show bilateral inguinal hernias with the right being larger than the left. Neither contained loops of bowel. No evidence of obstruction. Flu test was negative. At the time of this visit patient was awakened for exam. He states he did not hurt and was not nauseated. He was wondering when he could eat. [facility] Disclaimer: The information contained in this section may have been updated after the patient was seen, as this information can be updated by other users. Medical History (Updated 03/14/23 @ 11:20 by Triston Maradiaga MD) Gout History of left heart catheterization Family History (Updated 03/13/23 @ 13:59 by Altagracia Doe APRN) Diabetes Heart attack Social History (Updated 03/13/23 @ 15:03 by Bianca Banuelos, JEREMIAH) Smoking Status: Current every day smoker alcohol intake: never current occupational status: employed Travel in the last 8 weeks: None Review of Systems Constitutional Constitutional: Denies frequent falls and Reports headache(s) ENT Ears, Nose, Mouth, and Throat: Denies dizziness, Reports headache(s) and Denies vertigo *Musculoskeletal Musculoskeletal: Denies abnormal gait *Neurologic Neurologic: Denies abnormal gait, Denies dizziness, Denies frequent falls, Reports headache(s), Denies paresthesias and Denies vertigo Meds Home Medications and Allergies Home Medications Medication Instructions Recorded Confirmed Type No Known Home Medications 03/13/23 03/13/23 History New Prescriptions to Start Prescriptions: Allergies Allergy/AdvReac Type Severity Reaction Status Date / Time No Known Allergies Allergy Verified 03/13/23 08:51 Exam (Inpt) Vital signs and Labs for Last 24 Hours: Temp Pulse Resp BP Pulse Ox O2 Del Method 98.3 F 63 18 146/82 H 99 Room Air 03/14/23 07:57 03/14/23 07:57 03/14/23 07:57 03/14/23 07:57 03/14/23 07:57 03/14/23 08:59 Laboratory Results - last 24 hr 03/13/23 10:59: Lactate 0.7 03/13/23 : Triglycerides 90 03/14/23 06:02: WBC 10.3, RBC 4.98, Hgb 15.3, Hct 45.7, MCV 91.8, MCH 30.7, MCHC 33.5, RDW 13.8, Plt Count 218, MPV 8.1, Neut % (Auto) 65.7, Lymph % (Auto) 24.6, [place] % (Auto) 5.4, Eos % (Auto) 3.7, Baso % (Auto) 0.5, Neut # (Auto) 6.7, Lymph # (Auto) 2.5, [place] # (Auto) 0.6, Eos # (Auto) 0.4, Baso # (Auto) 0.1, Sodium 139, Potassium 4.6, Chloride 111 H, Carbon Dioxide 26, Anion Gap 6.6, BUN 12 D, Creatinine 1.00, Estimated Creat Clear 158, Estimated GFR 80, Est GFR ( Amer) 97, Glucose 91, Calcium 8.8, Total Bilirubin 0.8, AST 25, ALT 22, Alkaline Phosphatase 65, Total Protein 6.0 L, Albumin 3.5 D, Globulin 2.5, Albumin/Globulin Ratio 1.4, Amylase 83, Lipase 112 I & O for Labs for Last 24 Hours: Intake & Output 03/11/23 03/12/23 03/13/23 03/14/23 11:59 11:59 11:59 11:59 Intake Total 2902 / 2902 Output Total 700 / 700 Balance 2202 / 2202 Weight 269 lb 8 oz 266 lb 6.4 oz Constitutional: no acute distress Neck: Present full ROM Respiratory: Absent respiratory distress Cardiac: Absent Tachycardia GI: Present soft Comments:: Reducible right inguinal hernia most prominent with cough. Impulse noted on the left. Results Labs 03/14/23 06:02 03/14/23 06:02 Labs: Laboratory Results - last 24 hr 03/13/23 10:59: Lactate 0.7 03/13/23 : Triglycerides 90 03/14/23 06:02: WBC 10.3, RBC 4.98, Hgb 15.3, Hct 45.7, MCV 91.8, MCH 30.7, MCHC 33.5, RDW 13.8, Plt Count 218, MPV 8.1, Neut % (Auto) 65.7, Lymph % (Auto) 24.6, [place] % (Auto) 5.4, Eos % (Auto) 3.7, Baso % (Auto) 0.5, Neut # (Auto) 6.7, Lymph # (Auto) 2.5, [place] # (Auto) 0.6, Eos # (Auto) 0.4, Baso # (Auto) 0.1, Sodium 139, Potassium 4.6, Chloride 111 H, Carbon Dioxide 26, Anion Gap 6.6, BUN 12 D, Creatinine 1.00, Estimated Creat Clear 158, Estimated GFR 80, Est GFR ( Amer) 97, Glucose 91, Calcium 8.8, Total Bilirubin 0.8, AST 25, ALT 22, Alkaline Phosphatase 65, Total Protein 6.0 L, Albumin 3.5 D, Globulin 2.5, Albumin/Globulin Ratio 1.4, Amylase 83, Lipase [address] scan - abdomen: report reviewed and image reviewed CT scan - pelvis: report reviewed and image reviewed Assessment and Plan *Assessment and plan (1) Acute pancreatitis: Status: Acute Qualifiers: Pancreatitis type: unspecified pancreatitis type Acute pancreatitis complication: no infection or necrosis Qualified Code(s): K85.90 - Acute pancreatitis without necrosis or infection, unspecified Category: Medical Code(s): K85.90 - Acute pancreatitis without necrosis or infection, unspecified (2) Rt inguinal pain: Status: Acute Category: Medical Code(s): R10.31 - Right lower quadrant pain (3) Inguinal hernia: Problem Comment: Bilateral (right greater than left). Seemingly, only symptomatic on right. Status: Acute Qualifiers: Obstruction and gangrene presence: without obstruction or gangrene Laterality: bilateral Recurrence: non-recurrent Qualified Code(s): K40.20 - Bilateral inguinal hernia, without obstruction or gangrene, not specified as recurrent Category: Medical Code(s): K40.90 - Unilateral inguinal hernia, without obstruction or gangrene, not specified as recurrent Plan: I have discussed the risks and benefits of open unilateral repair and the risks and benefits of bilateral laparoscopic repair. As patient is currently recovering from pancreatitis and as he does not have evidence of incarceration, emergent repair during this hospitalization not recommended/warranted. However, close outpatient re-evaluation and discussion regarding surgical repair in the near future is reasonable. If he develops exacerbation of groin pain or evidence of incarceration he understands to return immediately to the emergency department. Otherwise, an outpatient clinic appointment will be scheduled for next week.
--- NOTE | 2023-03-15 15:39 | CARE MANAGER ---
Called and spoke with patient regarding recent discharge. He stated that he was doing well. No questions or concerns voiced at time of call. He was aware of scheduled f/u appts.
--- NOTE | 2023-03-25 22:32 | P.DS_ITS ---
General Admission date:: 03/13/23 Discharge date: 03/14/23 HPI HPI HPI: Mr. Benito is a 48-year-old male patient who is usually healthy and takes no medications on a regular basis who presented to [facility] emergency room after experiencing nausea and vomiting and diarrhea yesterday. He states it was sudden onset and he had been doing well and actually took a youth group to [place] on Sunday evening. He was able to retain dry cereal last p.m. This a.m. he again vomited. He was concerned about a right inguinal hernia which seems to be larger and was painful. He also began to experience some right upper Quadrant/general abdominal discomfort. He did vomit again today. He denies hematochezia, melena, and hematemesis. He is voiding without difficulty. He denies fever and upper respiratory problems. He states his family members currently have flu and he was concerned about this as well. With evaluation in the emergency room temperature was 98.7. Blood pressure initially was elevated and is now back to normal. He did receive a dose of Dilaudid 1 and Ketorolac IV which has helped his pain. He also received a liter of IV fluids and Zofran IV. Laboratory data was pretty much negative except for a lipase of 983. CT of the abdomen abdomen did show bilateral inguinal hernias with the right being larger than the left. Neither contained loops of bowel. No evidence of obstruction. Flu test was negative. At the time of this visit patient was awakened for exam. He states he did not hurt and was not nauseated. He was wondering when he could eat. Hospital Course Hospital Course Hospital Course: The patient was started on pain and nausea management as well as GI rest and IV fluids. By 03/14/2023 he was having less pain in his upper abdomen, but was having more pain in his right groin. He was unable to sleep due to the pain. He was able to tolerate oatmeal and Jell-O. His lipase normalized general surgery was consulted due to the inguinal hernia pain on the right side. He was seen by Dr. Maradiaga who planned an outpatient procedure for his hernia. He was st able to be discharged home. Exam Data for Last 24 hours Vital signs and Labs for Last 24 Hours: Temp Pulse Resp BP Pulse Ox O2 Del Method 98.3 F 63 18 146/82 H 99 Room Air 03/14/23 07:57 03/14/23 07:57 03/14/23 07:57 03/14/23 07:57 03/14/23 07:57 03/14/23 13:00 Narrative: Constitutional Constitutional: no acute distress Comments: Awakened for physical assessment. Patient was very helpful. *Routine HEENT Exam Head: Present normocephalic and atraumatic Eye: Present PERRL; Absent conjunctival icterus, scleral injection or conjunctivae pink ENT: Present mucous membranes moist and oropharynx clear *Routine Neck Exam Neck: Present supple; Absent carotid bruit, lymphadenopathy or thyromegaly *Routine Respiratory Exam Respiratory: Present CTA bilaterally (Anteriorly and posteriorly) *Routine Cardiovascular Exam Cardiovascular: Present RRR *Routine Abdominal Exam Abdominal: Present soft, normoactive bowel sounds, tenderness (Diffusely) and distended *Routine Rectal Exam Rectal:: deferred *Routine Genitalia Exam Genitalia:: deferred *Routine Extremities Exam Extremities: Present full ROM and pulses intact; Absent edema or calf tenderness *Routine Neurological Exam Neurological: Present alert and oriented X3 DS: Diagnosis Discharge Diagnosis (1) Acute pancreatitis: Status: Acute Code(s): K85.90 - Acute pancreatitis without necrosis or infection, unspecified Qualifiers: Acute pancreatitis complication: no infection or necrosis Pancreatitis type: unspecified pancreatitis type Qualified Code(s): K85.90 - Acute pancreatitis without necrosis or infection, unspecified (2) Rt inguinal pain: Status: Acute Code(s): R10.31 - Right lower quadrant pain (3) Inguinal hernia: Status: Acute Code(s): K40.90 - Unilateral inguinal hernia, without obstruction or gangrene, not specified as recurrent Qualifiers: Obstruction and gangrene presence: without obstruction or gangrene Laterality: bilateral Recurrence: non-recurrent Qualified Code(s): K40.20 - Bilateral inguinal hernia, without obstruction or gangrene, not specified as recurrent Problem details: Bilateral (right greater than left). Seemingly, only symptomatic on right. Meds Home Medications and Allergies Home Medications Medication Instructions Recorded Confirmed Type No Known Home Medications 03/13/23 03/21/23 History New Prescriptions to Start Prescriptions: Allergies Allergy/AdvReac Type Severity Reaction Status Date / Time No Known Allergies Allergy Verified 03/21/23 13:55 Discharge Plan Disposition Patient Disposition: Home Health Service Condition: Fair Discharge Order Discharge Orders: Discharge Order (Routine); Ordered 03/14/23 Ordered By: Hung Calix Follow up Plan Follow up with: Tim Mancini MD [Primary Care Provider] - 03/29/23 2:30 pm Triston Maradiaga MD [Staff Physician] - 03/21/23 2:00 pm Prescriptions/Medication Reconciliation: Continued No Known Home Medications Problem Reconciliation Problems Reviewed?: Yes Patient Discharge Instructions ACTIVITY: Continue current activity DIET: continue same diet Patient Instructions: DI for Groin Hernia, DI for Pancreatitis Providers Primary Care Provider: Tim Mancini Admit Provider: Hung Calix Attending Provider: Hung Calix
== END 2023-03-14 15:06 | disposition home health service (06) ==
LOC: UTC 09:25 → ER 09:25 → 2ND 12:46
PROVIDERS: Nurse Practitioner Family; Admitting Provider Family Medicine; Emergency Provider Emergency Medicine; PCP Family Medicine; Visit Provider Family Medicine
DX: K85.90 Acute pancreatitis without necrosis or infection, unspecified (principal); R10.31 Right lower quadrant pain; K40.90 Unilateral inguinal hernia, without obstruction or gangrene, not specified as recurrent; F17.210 Nicotine dependence, cigarettes, uncomplicated
CPT/HCPCS: 36415; 74177; 80053; 81003; 82150; 83605; 83690; 84478; 85025; 87086; 87804; 99285; G0378; J2405; Q9967

== ENCOUNTER 2023-03-21 14:29 | Outpatient (CLI) | payer BC, SELFPAY ==
--- NOTE | 2023-03-21 14:35 | ECG_ITS ---
APPROVED REPORT Exam: Resting ECG HR:76 bpm ECG Measurements Heart Rate 76 AXES MS 171 P 31 QRSd 107 QRS 42 QT 399 T 130 QTc [address] DEVIATION AND MODERATE T-WAVE ABNORMALITY, CONSIDER LATERAL ISCHEMIA [-0.1+ mV T-WAVE IN I/aVL/V5/V6] ABNORMAL ECG UNCONFIRMED REPORT Electronically signed by : Enrique Rahman MD 03/21/2023 20:57:06
[2023-03-21 14:46] LABS: Microscopic, Urine URINE MICROSCOPIC (MICROSCOPIC)
[2023-03-21 15:12] LABS: Appearance,Urine CLEAR (Clear); Bilirubin,Urine Negative (Negative); Blood, Urine Negative (Negative); Color,Urine YELLOW (Yellow); Glucose,Urine (UA) Negative (Negative); Ketones,Urine Negative (Negative); Leukocyte Esterase,Urine Negative (Negative); Nitrate,Urine Negative (Negative); Protein,Urine Negative (Negative); Specific Gravity, Urine 1.025 (1.005-1.030)
[2023-03-21 15:32] LABS: Alanine Aminotransferase 23 U/L (12-78); Albumin Level 4.1 g/dl (3.5-5.0); Albumin/Globulin Ratio 1.8 (1.1-1.8); Alkaline Phosphatase 66 U/L (38-126); Amylase 53 U/L (30-110); Anion Gap 9.3 mEq/L (5-15); Aspartate Amino Transferase 23 U/L (17-59); Bilirubin,Total 0.9 mg/dl (0.2-1.3); Blood Urea Nitrogen 20 mg/dl (9-20); Calcium 9.4 mg/dl (8.4-10.2); Carbon Dioxide 30 mmol/L (22.0-30.0); Chloride 107 mmol/L (98-107); Estimated Glomerular Filt Rate 72 ml/min (>60); GFR (African American) 87 ML/MIN (>60); Globulin 2.3 g/dL (1.3-3.2); Glucose 77 mg/dl (74-100); Lipase 129 U/L (23-300); Potassium 4.3 mmoL/L (3.5-5.1); Sodium 142 mmol/L (136-145); Total Protein,Serum 6.4 g/dl (6.3-8.2)
[2023-03-21 16:29] LABS: Basophils % 0.4 % (0.1-2.0); Eosinophils # 0.4 K/mm3 (0.0-0.4); Eosinophils % 3.4 % (0.1-12.0); Hematocrit 46.6 % (42.0-52.0); Hemoglobin 16.1 g/dL (14.1-18.0); Lymphocytes # 2.8 K/mm3 (0.7-4.5); Lymphocytes % 26.9 % (10-50); Mean Corpuscular HGB Conc 34.6 g/dL (31.8-35.4); Mean Corpuscular Hemoglobin 30.9 pg (27.0-31.2); Mean Corpuscular Volume 89.4 fl (80-94); Mean Platelet Volume 8.3 fl (7.4-10.4); Monocytes # 0.7 K/mm3 (0.1-1.0); Monocytes % 6.8 % (1.7-9.3); Neutrophils # 6.4 K/mm3 (1.8-7.8); Neutrophils % 62.6 % (37.0-80.0); Platelet Count 253 K/mm3 (142-424); Red Blood Count 5.21 M/mm3 (4.60-6.20); Red Cell Distribution Width 13.7 % (11.5-17.5); White Blood Count 10.3 K/mm3 (4.8-10.8)
== END 2023-03-21 23:59 ==
LOC: LAB 14:30
PROVIDERS: PCP Family Medicine; Visit Provider Surgery
DX: Z01.818 Encounter for other preprocedural examination (principal); K40.90 Unilateral inguinal hernia, without obstruction or gangrene, not specified as recurrent
CPT/HCPCS: 36415; 80053; 81001; 82150; 83690; 85025; 93005

== ENCOUNTER 2023-03-29 08:27 | Day surgery (SDC) | payer BC, SELFPAY ==
[2023-03-27 16:55] VITALS: BMI 38.7
[2023-03-29] VITALS (10 sets, daily range): BP systolic 98–170; BP diastolic 54–105; PULSE 69–88; RESP 16–20; TEMP 36–43; O2SAT 95–98
[2023-03-29] MEDS: LACTATED RINGERS 1000ML 1,000 ML 100 ML IV (08:36)
--- NOTE | 2023-03-29 09:05 | EXP.ANES.CKL ---
[facility] Disclaimer: The information contained in this section may have been updated after the patient was seen, as this information can be updated by other users. Medical History Gout History of left heart catheterization Surgical History No significant past surgical history Family History Other Diabetes Heart attack Social History Smoking Status: Current every day smoker alcohol intake: never substance use type: denies use current occupational status: employed Travel in the last 8 weeks: None [facility] Anesthesia Checklist Patient Identification Patient Identification: Arm Band, Family () and Verbal (Name & ) Structural Data Admitted From: Home Planned Operative Procedure/s: Open Right IHR Consent for Planned Operative Procedure(s) Verified: Yes Verified Documents: Surgical Consent and History and Physical NPO Status Verified Time NPO: 20:00 Chart Verification Results Verified: CBC, BMP, ECG and Chest Xray Additional verifications Patient : No Anesthesia Reactions: No Hx Blood Transfusions: No Cardiovascular Assessment Heart Sounds: S1 & S2 Pulse Rhythm: Irregular Peripheral Edema: No Airway Assessment Mallampati Score:: Class II C-Spine Mobility Assessed: Yes (FROM) TMJ Mobility Assessed: Yes Dentition: Good Dentition (Nothing loose per pt.) Neurological Assessment Level of Consciousness: Awake, Alert, Appropriate and Follows Commands Hx Seizures: No Numbness or tingling in extremities: No Anesthesia Plan Anesthesia Risk discussed: Yes Anesthesia Plan: Verified ASA Class: II Anesthesia Type: General
[2023-03-29] MEDS: CEFAZOLIN SODIUM 2 GM in 0.9 % SODIUM CHLORIDE 100 ML IV (09:49)
[2023-03-29] MEDS: LIDOCAINE 1% 20ML MDV 20 ML (10:12)
--- NOTE | 2023-03-29 11:50 | EXP.OP.NOTE ---
Date of procedure: 03/29/23 Pre-op Diagnosis:: Right inguinal hernia Post-op Diagnosis:: Same Procedure performed:: Open right inguinal hernia repair Surgeon:: Triston Maradiaga MD Anesthesia: GETRadha Estimated blood loss (mL): 15 Operative findings:: Exceptionally large defect encompassing internal ring and canal floor (essentially pantaloon defect without discontinuity) Operative note:: After informed consent was obtained the patient was taken to the operating room and placed in the supine position. General anesthesia was induced and his lower abdomen and groin/scrotum were prepped and draped in a sterile fashion. After infiltration with local anesthetic an oblique right groin incision was made. A combination of blunt dissection, sharp dissection, and electrocautery was utilized to transect to the level of the external aponeurosis. The external aponeurosis was sharply opened to the level of the external ring. The contents of the canal were carefully elevated. An exceptionally large defect was immediately encountered. Significant soft tissue stranding throughout the canal was noted. A large cord lipoma was resected with electrocautery. The remaining reducible defect was carefully freed from surrounding tissue. No obvious injury to the vasculature or vas deferens was noted. Once the dissection was complete, a defect that essentially encompassed canal floor and internal ring was noted (i.e., a single massive direct/indirect defect). An extra-large PerFix plug was placed in the direct portion of the defect and secured with interrupted Ethibond. An additional extra-large PerFix plug was placed in the indirect portion of the defect and secured with interrupted Ethibond. The PerFix overlay was then secured to the shelving edge inferiorly and fascial margin superiorly with interrupted Ethibond. The external aponeurosis was reapproximated with running Vicryl suture. Daniel's fascia was closed in the same manner. Skin was then closed with the INSORB stapling device. Dressings were applied and the patient was transferred to recovery in stable condition. Condition: stable Disposition: PACU Specimens:: None Complications:: No immediate
--- NOTE | 2023-03-29 12:00 | P.PNANES_ITS ---
[facility] Anesthesia Record Part I Anesthesia Record I Intake, IV Amount: 1,500 Hydration: Adequate Estimated blood loss (mL): 75 Urine output (mL): 100 Blood Products used (#): none Blood Pressure: 98/75 SaO2: 95 Pulse Rate: 88 Airway Patency: Patent Respiratory Rate: 20 Temperature: 96.8 F Patient is:: Awake (Talking) and Stable Stable to PACU at:: 11:59
[2023-03-29 17:08] LABS: Microscopic,Cath URINE MICROSCOPIC (MICROSCOPIC)
[2023-03-29 17:30] LABS: Appearance,Urine/Cath CLEAR (Clear); Bilirubin,Cath Negative (Negative); Blood, Urine/Cath Negative (Negative); Color,Urine/Cath YELLOW (Yellow); Glucose,Urine/Cath (UA) Negative (Negative); Ketones,Urine/Cath Negative (Negative); Leukocyte Esterase,Cath Negative (Negative); Nitrate,Cath Negative (Negative); PH,Urine/Cath 5.5 (5.0-8.5); Protein,Urine/Cath Negative (Negative); Urobilinogen,Cath 0.2 EU/dl (0.2)
--- NOTE | 2023-03-30 07:33 | P.PNANES_ITS ---
[facility] Anesthesia Record Part II Anesthesia Record Part II Discharge Time: 12:24 Destination: Surgical Day Care (OP Surgery) PACU nurse assessment reviewed?: Yes Patient Condition:: Good Anesthesia Complications:: None Swallowing reflex intact?: Yes Airway Patency: Patent Cyanosis?: No Blood Pressure: 107/88 SaO2: 95 Respiratory Rate: 17 Pulse Rate: 73 Temperature: 97.4 F Mental Status: Alert & Oriented Pain level:: 0 Nausea and/or vomitting:: None Intake, IV Amount: 0 Hydration: Adequate
[2023-03-30 07:34] VITALS: BP 107/88; PULSE 73; RESP 17; TEMP 36.3; O2SAT 95
== END 2023-03-29 13:00 | disposition home or self-care (01) ==
PROVIDERS: PCP Family Medicine; Visit Provider Surgery
PROC: (CPT 49505; principal; 2023-03-29 11:30)
DX: K40.90 Unilateral inguinal hernia, without obstruction or gangrene, not specified as recurrent (principal); D17.6 Benign lipomatous neoplasm of spermatic cord
CPT/HCPCS: 49505; 55520; 81001; 96374; J3490; J2405

== ENCOUNTER 2024-01-04 03:06 | Emergency (ER) | payer BC, SELFPAY ==
[2024-01-04 03:07] VITALS: BP 154/102; PULSE 78; RESP 18; TEMP 36.6; O2SAT 97; BMI 37.3
--- NOTE | 2024-01-04 03:29 | US_ITS ---
PROCEDURE INFORMATION: Exam: US Scrotum and Artery or Vein of the Abdominal and/or Reproductive Organs, Limited Scrotum Exam date and time: 01/04/2024 3:54 AM Age: 48 years old Clinical indication: Scrotum pain; Additional info: Left testicular pain TECHNIQUE: Imaging protocol: Real-time ultrasound of the scrotum. Real-time duplex ultrasound scan of the arterial or venous flow with mcdonald scale, color Doppler flow and spectral waveform analysis with image documentation. Limited Duplex exam focused of the scrotum. Duplex exam was performed to evaluate for torsion and other vascular conditions. COMPARISON: CT ABDOMEN PELVIS W CON 03/13/2023 10:40 AM FINDINGS: Right testicle: Normal. No mass. Normal arterial and venous waveforms on Doppler. No torsion. Right testicle measures 5.8 x 3.3 x 2.9 cm. Left testicle: No mass. Normal arterial and venous waveforms on Doppler. No torsion. Left testicle measures 4.4 x 3.0 x 3.2 cm. Epididymides: Normal. Extratesticular spaces: Bilateral hydroceles. Scrotum/soft tissues: Normal. IMPRESSION: 1. No significant testicular or epididymal abnormality. 2. Bilateral hydroceles.
--- NOTE | 2024-01-04 03:32 | ED_ITS ---
Discharge Plan Disposition Patient Disposition: Home, Self-Care Prescriptions Prescriptions: New levofloxacin 750 mg tablet 750 mg PO DAILY 10 Days Qty: 10 0RF oxycodone 5 mg tablet 5 mg PO Q8H PRN (Reason: pain) Qty: 12 0RF No Action bupropion HCl 150 mg tablet sustained-release 12 hr PO Referrals Follow up/Referrals: Dennys Hall MD [Staff Physician] - See instructions Provider,MD Mayi [Primary Care Provider] - See instructions Activity Restrictions/Add. Instructions Additional Instructions/Restrictions: Please take antibiotics and pain medications as prescribed. Please follow-up with our urologist. Please return to the emergency department if you develop any new or worsening symptoms or become concerned for your health. Clinical Impressions Clinical Impression: Epididymo-orchitis Stand Alone Forms Stand Alone Forms: Work/School Release Print Language Print Language: German Discharge ED Provider: Bull [facility] HPI <Liam Sue MD - Last Filed: 01/04/24 06:59> General Chief complaint: PAIN Stated complaint: pain, tingling L side Time Seen by Provider: 01/04/24 03:16 Mode of Arrival: Ambulatory Source of Information: Patient Limitations: No Limitations Description of Symptoms (Recalled from ER Triage Doc. by RN): Patient reports pain in left testicle that radiates up to his arms and down to his legs on the left. States he has a small known hernia on that side. Started yesterday around 1pm. History of Present Illness HPI narrative: 48-year-old male without significant past medical history presents for acute onset left testicular pain that started yesterday around 1 PM. He reports that started relatively suddenly. He reports it sends shooting pains throughout the left side of his body that are severe. It comes and goes but is tender all the time. He reports that his testicles do not feel swollen. He has had no urinary symptoms, has no history of UTIs. He did have a inguinal hernia on the right that was repaired earlier this year and he was told he has a small hernia on the left. He has not had any focal abdominal pain or tenderness besides the shooting pain up from the testicle. He reports has been having normal bowel movements. He denies concerns for STDs. No urethral discharge. Related Data Home Medications ?Medication ?Instructions ?Recorded ?Confirmed bupropion HCl 150 mg tablet,12 hr mg PO 04/13/23 04/13/23 sustained-release Previous Rx's ?Medication ?Instructions ?Recorded levofloxacin 750 mg tablet 750 mg PO DAILY 10 days #10 tabs 01/04/24 oxycodone 5 mg tablet 5 mg PO Q8H PRN pain #12 tabs 01/04/24 Allergies Allergy/AdvReac Type Severity Reaction Status Date / Time No Known Allergies Allergy Verified 04/13/23 10:57 PFSH <Liam Sue MD - Last Filed: 01/04/24 06:59> [facility] Disclaimer: The information contained in this section may have been updated after the patient was seen, as this information can be updated by other users. Medical History History of left heart catheterization Gout Tick bite of right foot with infection Surgical History No significant past surgical history Family History Other Diabetes Heart attack Social History Smoking Status: Current every day smoker alcohol intake: never substance use type: denies use current occupational status: employed Other Medical History Have you received the Flu Vaccine for this season: No Have you received the Pneumonia Vaccine: No <Liam Sue MD - Last Filed: 01/04/24 06:59> ROS Obtained: Yes All systems reviewed & no additional complaints except as documented Physical Exam <Liam Sue MD - Last Filed: 01/04/24 06:59> General General appearance: alert Comment: Uncomfortable appearing secondary to pain Head Head exam: atraumatic and normocephalic Eye Eye exam: Present normal appearance, PERRL and EOMI ENT ENT exam: Present normal oropharynx and normal external ear exam Neck Neck exam: Present normal inspection and full ROM Chest Chest inspection: Present normal inspection and symmetric chest wall rise; Absent tenderness Respiratory Respiratory exam: Present normal lung sounds bilaterally; Absent respiratory distress Cardiovascular Cardiovascular exam: Present regular rate and normal rhythm Abdominal Exam Abdominal exam: Present soft; Absent distention, tenderness or guarding exam: Present other (Bilateral testicles enlarged, left testicle exquisitely tender to palpation, normal lie, normal cremasteric reflex, no erythema of the scrotum, no palpable hernia bilaterally) Extremities Exam Extremities exam: Present normal inspection; Absent edema or joint swelling Back Exam Back exam: Present normal inspection; Absent tenderness Neurological Exam Neurological exam: Present alert and oriented X3; Absent motor sensory deficit Psychiatric Psychiatric exam: Present normal affect and normal mood Skin Skin exam: Present warm, dry and normal color Lymphatic Lymphatic Findings: no adenopathy Medical Decision Making <Liam Sue MD - Last Filed: 01/04/24 06:59> Medical Records Medical records reviewed: Yes I reviewed the patient's medical records. Screening: Per USPSTF and CDC recommendations, given the prevalence of disease in our region, it is our hospital?s policy to screen for HIV and viral Hepatitis for all patients aged 18 and over and those with ongoing risk factors. Arjun Inquiry Pt receiving controlled substance: No Arjun was queried for this patient: No Vital Signs: 01/04/24 03:07 Temperature 97.9 F Temperature Source Oral Pulse Rate [Right Radial] 78 Respiratory Rate 18 Blood Pressure [Right Arm] 154/102 H Blood Pressure Mean [Right Arm] 119 Blood Pressure Source [Right Arm] Automatic Cuff Blood Pressure Position [Right Arm] Supine 02 Sat by Pulse Oximetry 97 Oxygen Delivery Method Room Air Lab Data Lab results reviewed: Yes I reviewed the patient's lab results. Lab Results 01/04/24 03:15: WBC 9.8, RBC 4.97, Hgb 15.2, Hct 44.3, MCV 89.1, MCH 30.5, MCHC 34.2, RDW 13.6, Plt Count 275, MPV 8.0, Neut % (Auto) 58.9, Lymph % (Auto) 29.4, [place] % (Auto) 6.8, Eos % (Auto) 3.7, Baso % (Auto) 1.2, Neut # (Auto) 5.8, Lymph # (Auto) 2.9, [place] # (Auto) 0.7, Eos # (Auto) 0.4, Baso # (Auto) 0.1, Sodium 140, Potassium 4.0, Chloride 113 H, Carbon Dioxide 21 L, Anion Gap 10.0, BUN 27 H, Creatinine 1.10, Estimated Creat Clear 140, Estimated GFR 72, Est GFR ( Amer) 87, Glucose 103 H, Calcium 8.8, Total Bilirubin 0.6, AST 20, ALT 19, Alkaline Phosphatase 68, Total Protein 6.6, Albumin 3.9, Globulin 2.7, Albumin/Globulin Ratio 1.4, HIV 1&2 Antibody Rapid Nonreactive 01/04/24 04:39: Urine Color Yellow, Urine Appearance Clear, Urine pH 6.0, Ur Specific Watson 1.025, Urine Protein Negative, Urine Glucose (UA) Negative, Urine Ketones Negative, Urine Blood Negative, Urine Nitrate Negative, Urine Bilirubin Negative, Urine Urobilinogen 1.0, Ur Leukocyte Esterase Negative, Urine WBC Occasional, Ur Squamous Epith Cells Occasional, Urine Bacteria Trace 01/04/24 03:15 01/04/24 03:15 Orders (Tests/Meds): ED MEDICATIONS Discontinued Medications Generic Name Dose Route Start Last Admin Trade Name Antwonq PRN Reason Stop Dose Admin Acetaminophen 1,000 mg 01/04/24 03:30 01/04/24 03:40 Acetaminophen 500mg Tab PO 01/04/24 03:31 1,000 mg ONCE ONE Administration Levofloxacin/Dextrose 750 mg in 150 mls @ 100 mls/hr 01/04/24 07:18 01/04/24 07:25 Levofloxacin 750mg/150ml Premix IV 01/04/24 08:47 Not Given Q24H ONE Iopamidol 75 ml 01/04/24 06:29 01/04/24 06:31 Iopamidol-370 (76%);100ml Bottle IV 01/04/24 06:30 75 ml ONCE ONE Administration Ketorolac Tromethamine 30 mg 01/04/24 03:30 01/04/24 03:40 Ketorolac 30mg/Ml Vial IV 01/04/24 03:31 30 mg ONCE ONE Administration Levofloxacin 750 mg 01/04/24 07:24 01/04/24 07:27 Levofloxacin 750 Mg Tablet PO 01/04/24 07:25 750 mg ONCE ONE Administration Morphine Sulfate 4 mg 01/04/24 06:05 01/04/24 06:12 Morphine 4mg/Ml Syringe IV 01/04/24 06:06 4 mg ONCE ONE Administration Sodium Chloride 10 ml 01/04/24 06:29 01/04/24 06:31 Sodium Chloride 0.9% 10ml Syr (Rad Only) IV 01/04/24 06:30 10 ml ONCE ONE Administration ORDERS Category Date Time Status CT abdomen pelvis w con Stat Cat Scan 01/04/24 06:05 Completed CBC w/Auto Diff [Complete Blood Count Auto Diff] Stat Lab 01/04/24 03:15 Completed CMP [Comprehensive Metabolic Panel] Stat Lab 01/04/24 03:15 Completed HIV (1&2) Antibody Rapid Stat Lab 01/04/24 03:15 Completed Hep C Ab with Reflex to RNA Stat Lab 01/04/24 03:15 Received UA [Urinalysis and Microscopic] Stat Lab 01/04/24 04:39 Completed US scrotum [US Testicular] Stat Ultrasound 01/04/24 03:29 Completed Medical Decision Narrative: 48-year-old male without significant past medical history presents for acute onset of severe left testicular pain starting yesterday.. History was obtained via interactive discussion with patient, family. On arrival, patient is [afebrile, hemodynamically stable, satting appropriately, alert, oriented x4, GCS 15], moving all extremities spontaneously. Full physical exam performed and significant for bilateral testicular swelling, patient reports that they are normal in size for him, patient has severe testicular tenderness on the left side, normal cremasteric reflex, no overlying skin changes, no hernia noted. Initially had no abdominal tenderness Differential includes but is not limited to testicular torsion, epididymal orchitis, hydrocele, varicocele, skin/soft tissue infection. Patient was given Tylenol Toradol morphine for symptomatic management and correction of underlying abnormalities. Workup initiated including CBC CMP UA emergent testicular ultrasound. On re-evaluation, patient [remains afebrile, HD stable.] Continues to have significant pain. He reports pain is now moved into his abdomen. Laboratory workup independently interpreted by me and significant for unremarkable CBC CMP, normal renal function, urinalysis with occasional WBCs and trace bacteria.. Imaging independently interpreted by me and significant for bilateral hydroceles on testicular ultrasound, otherwise no acute findings. See radiology read for full review of final results. I called and discussed the case with the [facility] urology with concern for possible ultrasound negative torsion. After discussion with them regarding the ultrasound findings, labs and physical exam, they report that they have no concern that the patient has torsion at this time. On reexamination patient's abdominal pain is worsened. Given this, we will proceed with CT imaging of the abdomen and pelvis. At this time care handed off to oncoming physician. <Bull Austin DO - Last Filed: 01/04/24 07:31> Vital Signs: 01/04/24 03:07 Temperature 97.9 F Temperature Source Oral Pulse Rate [Right Radial] 78 Respiratory Rate 18 Blood Pressure [Right Arm] 154/102 H Blood Pressure Mean [Right Arm] 119 Blood Pressure Source [Right Arm] Automatic Cuff Blood Pressure Position [Right Arm] Supine 02 Sat by Pulse Oximetry 97 Oxygen Delivery Method Room Air Lab Data Lab Results 01/04/24 03:15: WBC 9.8, RBC 4.97, Hgb 15.2, Hct 44.3, MCV 89.1, MCH 30.5, MCHC 34.2, RDW 13.6, Plt Count 275, MPV 8.0, Neut % (Auto) 58.9, Lymph % (Auto) 29.4, [place] % (Auto) 6.8, Eos % (Auto) 3.7, Baso % (Auto) 1.2, Neut # (Auto) 5.8, Lymph # (Auto) 2.9, [place] # (Auto) 0.7, Eos # (Auto) 0.4, Baso # (Auto) 0.1, Sodium 140, Potassium 4.0, Chloride 113 H, Carbon Dioxide 21 L, Anion Gap 10.0, BUN 27 H, Creatinine 1.10, Estimated Creat Clear 140, Estimated GFR 72, Est GFR ( Amer) 87, Glucose 103 H, Calcium 8.8, Total Bilirubin 0.6, AST 20, ALT 19, Alkaline Phosphatase 68, Total Protein 6.6, Albumin 3.9, Globulin 2.7, Albumin/Globulin Ratio 1.4, HIV 1&2 Antibody Rapid Nonreactive 01/04/24 04:39: Urine Color Yellow, Urine Appearance Clear, Urine pH 6.0, Ur Specific Watson 1.025, Urine Protein Negative, Urine Glucose (UA) Negative, Urine Ketones Negative, Urine Blood Negative, Urine Nitrate Negative, Urine Bilirubin Negative, Urine Urobilinogen 1.0, Ur Leukocyte Esterase Negative, Urine WBC Occasional, Ur Squamous Epith Cells Occasional, Urine Bacteria Trace Orders (Tests/Meds): ED MEDICATIONS Discontinued Medications Generic Name Dose Route Start Last Admin Trade Name Freq PRN Reason Stop Dose Admin Acetaminophen 1,000 mg 01/04/24 03:30 01/04/24 03:40 Acetaminophen 500mg Tab PO 01/04/24 03:31 1,000 mg ONCE ONE Administration Levofloxacin/Dextrose 750 mg in 150 mls @ 100 mls/hr 01/04/24 07:18 01/04/24 07:25 Levofloxacin 750mg/150ml Premix IV 01/04/24 08:47 Not Given Q24H ONE Iopamidol 75 ml 01/04/24 06:29 01/04/24 06:31 Iopamidol-370 (76%);100ml Bottle IV 01/04/24 06:30 75 ml ONCE ONE Administration Ketorolac Tromethamine 30 mg 01/04/24 03:30 01/04/24 03:40 Ketorolac 30mg/Ml Vial IV 01/04/24 03:31 30 mg ONCE ONE Administration Levofloxacin 750 mg 01/04/24 07:24 01/04/24 07:27 Levofloxacin 750 Mg Tablet PO 01/04/24 07:25 750 mg ONCE ONE Administration Morphine Sulfate 4 mg 01/04/24 06:05 01/04/24 06:12 Morphine 4mg/Ml Syringe IV 01/04/24 06:06 4 mg ONCE ONE Administration Sodium Chloride 10 ml 01/04/24 06:29 01/04/24 06:31 Sodium Chloride 0.9% 10ml Syr (Rad Only) IV 01/04/24 06:30 10 ml ONCE ONE Administration ORDERS Category Date Time Status CT abdomen pelvis w con Stat Cat Scan 01/04/24 06:05 Completed CBC w/Auto Diff [Complete Blood Count Auto Diff] Stat Lab 01/04/24 03:15 Completed CMP [Comprehensive Metabolic Panel] Stat Lab 01/04/24 03:15 Completed HIV (1&2) Antibody Rapid Stat Lab 01/04/24 03:15 Completed Hep C Ab with Reflex to RNA Stat Lab 01/04/24 03:15 Received UA [Urinalysis and Microscopic] Stat Lab 01/04/24 04:39 Completed US scrotum [US Testicular] Stat Ultrasound 01/04/24 03:29 Completed Medical Decision Narrative: 48-year-old male without significant past medical history presents for acute onset of severe left testicular pain starting yesterday.. History was obtained via interactive discussion with patient, family. On arrival, patient is [afebrile, hemodynamically stable, satting appropriately, alert, oriented x4, GCS 15], moving all extremities spontaneously. Full physical exam performed and significant for bilateral testicular swelling, patient reports that they are normal in size for him, patient has severe testicular tenderness on the left side, normal cremasteric reflex, no overlying skin changes, no hernia noted. Initially had no abdominal tenderness Differential includes but is not limited to testicular torsion, epididymal orchitis, hydrocele, varicocele, skin/soft tissue infection. Patient was given Tylenol Toradol morphine for symptomatic management and correction of underlying abnormalities. Workup initiated including CBC CMP UA emergent testicular ultrasound. On re-evaluation, patient [remains afebrile, HD stable.] Continues to have significant pain. He reports pain is now moved into his abdomen. Laboratory workup independently interpreted by me and significant for unremarkable CBC CMP, normal renal function, urinalysis with occasional WBCs and trace bacteria.. Imaging independently interpreted by me and significant for bilateral hydroceles on testicular ultrasound, otherwise no acute findings. See radiology read for full review of final results. I called and discussed the case with the [facility] urology with concern for possible ultrasound negative torsion. After discussion with them regarding the ultrasound findings, labs and physical exam, they report that they have no concern that the patient has torsion at this time. On reexamination patient's abdominal pain is worsened. Given this, we will proceed with CT imaging of the abdomen and pelvis. At this time care handed off to oncoming physician. Care assumed by physician Austin: Upon my assumption of care CT imaging pending. Independently interpreted and reviewed by myself. Seroma noted right inguinal canal, consistent with prior inguinal repair. No noted acute pathology per my review. Please see radiology report for official interpretation. At this time believe patient to have epididymoorchitis?given antibiotics. Patient has been's prescribed antibiotics as well as pain medication. Referral made for urology. On reassessment patient remains hemodynamically stable. At this time medically clear for discharge with outpatient follow-up. Given strict instructions to return to ED if symptoms worsen. Discharged home with hemodynamically stable vitals Procedures <Liam Sue MD - Last Filed: 01/04/24 06:59> Risk/Benefits of Procedure(s) Were Explained: Yes Critical Care <Liam Sue MD - Last Filed: 01/04/24 06:59> Critical Care Time Critical Care Time: No
[2024-01-04 03:37] LABS: Basophils # 0.1 K/mm3 (0-0.2); Basophils % 1.2 % (0.1-2.0); Eosinophils # 0.4 K/mm3 (0.0-0.4); Eosinophils % 3.7 % (0.1-12.0); Hematocrit 44.3 % (42.0-52.0); Hemoglobin 15.2 g/dL (14.1-18.0); Lymphocytes # 2.9 K/mm3 (0.7-4.5); Lymphocytes % 29.4 % (10-50); Mean Corpuscular HGB Conc 34.2 g/dL (31.8-35.4); Mean Corpuscular Hemoglobin 30.5 pg (27.0-31.2); Mean Corpuscular Volume 89.1 fl (80-94); Monocytes # 0.7 K/mm3 (0.1-1.0); Monocytes % 6.8 % (1.7-9.3); Neutrophils # 5.8 K/mm3 (1.8-7.8); Neutrophils % 58.9 % (37.0-80.0); Platelet Count 275 K/mm3 (142-424); Red Blood Count 4.97 M/mm3 (4.60-6.20); Red Cell Distribution Width 13.6 % (11.5-17.5); White Blood Count 9.8 K/mm3 (4.8-10.8)
[2024-01-04] MEDS: KETOROLAC 30MG/ML VIAL 30 MG IV (03:40)
[2024-01-04] MEDS: ACETAMINOPHEN 500MG TAB 1000 MG PO (03:40)
[2024-01-04 03:45] LABS: Albumin Level 3.9 g/dl (3.5-5.0); Chloride 113 mmol/L (98-107); Sodium 140 mmol/L (136-145)
[2024-01-04 03:48] LABS: Alanine Aminotransferase 19 U/L (12-78); Albumin/Globulin Ratio 1.4 (1.1-1.8); Alkaline Phosphatase 68 U/L (38-126); Aspartate Amino Transferase 20 U/L (17-59); Bilirubin,Total 0.6 mg/dl (0.2-1.3); Blood Urea Nitrogen 27 mg/dl (9-20); Calcium 8.8 mg/dl (8.4-10.2); Carbon Dioxide 21 mmol/L (22.0-30.0); Creatinine Clearance Estimated 140 mL/min (50-200); Estimated Glomerular Filt Rate 72 ml/min (>60); GFR (African American) 87 ML/MIN (>60); Globulin 2.7 g/dL (1.3-3.2); Glucose 103 mg/dl (74-100); Total Protein,Serum 6.6 g/dl (6.3-8.2)
[2024-01-04 04:46] LABS: Microscopic, Urine URINE MICROSCOPIC (MICROSCOPIC)
[2024-01-04 04:47] LABS: Appearance,Urine CLEAR (Clear); Bilirubin,Urine Negative (Negative); Blood, Urine Negative (Negative); Color,Urine YELLOW (Yellow); Glucose,Urine (UA) Negative (Negative); Ketones,Urine Negative (Negative); Leukocyte Esterase,Urine Negative (Negative); Nitrate,Urine Negative (Negative); Protein,Urine Negative (Negative); Specific Gravity, Urine 1.025 (1.005-1.030)
[2024-01-04 04:49] LABS: HIV (1&2) Antibody Rapid NONREACTIVE (NONREACTIVE)
[2024-01-04 05:13] LABS: Bacteria,Urine Trace /lpf; Squamous Epithelial Cell,Urine Occasional #/hpf (0-5); WBC,Urine Occasional #/hpf (0-3)
--- NOTE | 2024-01-04 05:42 | PC.NURSE ---
Spoke with about a consult for pt. speaking with Dr.[place].
--- NOTE | 2024-01-04 06:05 | CT_ITS ---
PROCEDURE INFORMATION: Exam: CT Abdomen And Pelvis With Contrast Exam date and time: 01/04/2024 6:20 AM Age: 48 years old Clinical indication: Abdominal pain; Localized; Left; Additional info: Severe testicular pain, left sided abd pain, TECHNIQUE: Imaging protocol: Computed tomography of the abdomen and pelvis with contrast. Radiation optimization: All CT scans at this facility use at least one of these dose optimization techniques: automated exposure control; mA and/or kV adjustment per patient size (includes targeted exams where dose is matched to clinical indication); or iterative reconstruction. Contrast material: ISOVUE; Contrast volume: 75 ml; Contrast route: IV; COMPARISON: CT ABDOMEN PELVIS W CON 03/13/2023 10:40 AM FINDINGS: Lungs: Right middle lobe granuloma. Basilar atelectasis/scarring bilaterally. 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 Heart: Base of heart is unremarkable as visualized. Liver: Normal. No mass. Gallbladder and biliary ducts: Normal. No calcified stones. No ductal dilation. Pancreas: Normal. No ductal dilation. Spleen: Multiple splenic granulomas. Adrenal glands: Normal. No mass. Kidneys and ureters: Stable left renal atrophy with left calcified renal stone. Stomach and bowel: Unremarkable. No obstruction. No mucosal thickening. Appendix: No evidence of appendicitis. Intraperitoneal space: Unremarkable. No free air. No significant fluid collection. Vasculature: Stable appearance of soft tissue prominence about the descending abdominal aorta extending at bifurcation with surrounding prominent lymph nodes. Lymph nodes: Prominent lower central mesenteric lymph nodes, stable from prior comparison. Urinary bladder: Unremarkable as visualized. Reproductive: Bilateral hydroceles. Bones/joints: Unremarkable. No acute fracture. Soft tissues: New from prior comparison is lobulated cyst at the entrance of the right inguinal canal which likely represents postsurgical/postprocedural change given interval loss of right inguinal herniating fat. IMPRESSION: 1. Likely postsurgical seroma at the entrance of the right canal, correlate with patient history. 2. Stable retroperitoneal fibrosis.
[2024-01-04] MEDS: MORPHINE 4MG/ML SYRINGE 4 MG IV (06:12)
[2024-01-04] MEDS: IOPAMIDOL-370 (76%);100ML BOTTLE 75 ML IV (06:31)
[2024-01-04] MEDS: SODIUM CHLORIDE 0.9% 10ML SYR (RAD ONLY) 10 ML IV (06:31)
[2024-01-04] MEDS: levoFLOXacin 750 MG TABLET PO (07:27)
[2024-01-04 07:35] VITALS: BP 146/79; PULSE 70; RESP 18; TEMP 36.8; O2SAT 98
[2024-01-05 03:36] LABS: HCV Ab Non Reactive (Non Reactive)
[2024-01-06 14:09] LABS: Neisseria gonorrhoeae, NAA Negative (Negative)
== END 2024-01-04 07:37 | disposition home or self-care (01) ==
PROVIDERS: Emergency Medicine; Emergency Provider Student in an Organized Health Care Education/Training Program
DX: N45.3 Epididymo-orchitis (principal); N50.812 Left testicular pain
CPT/HCPCS: 74177; 76870; 80053; 81001; 85025; 86803; 87389; 87491; 87591; 96365; 96366; 96374; 96375; 99285; J1885; J2270; Q9967